=== PATIENT | male | born 1950 | race Caucasian/White ===

== ENCOUNTER 2020-02-25 05:33 | Outpatient (RCR) | payer BC ==
[~2020-02-25] VITALS: Ht 180 cm; Wt 83.0 kg
[~2020-02-25 05:33] MED LIST: ASCO500C17 PO; CHOL2000 PO; MAGN250T13 PO; OMEP20TA7 PO; VITA15LO2 PO; ZOLP6.252 PO
[2020-02-27] MEDS ORDERED: TRM50T PO (12:14)
[2020-02-27] MEDS ORDERED: CEPH-507 PO (12:15)
== END 2020-02-25 10:14 | disposition home or self-care (01) ==
LOC: PREOP 05:33
PROVIDERS: ATTEND Radiology Radiation Oncology
DX: Z01.812 Encounter for preprocedural laboratory examination (principal); Z20.828 Contact with and (suspected) exposure to other viral communicable diseases; C61 Malignant neoplasm of prostate
CPT/HCPCS: 87635

== ENCOUNTER 2020-02-27 11:27 | Day surgery (SDC) | payer BC ==
[2020-02-27] VITALS (10 sets, daily range): BP systolic 110–138; BP diastolic 71–95
[~2020-02-27] VITALS: Ht 180 cm; Wt 83.0 kg
[2020-02-27] MEDS ORDERED: ceFAZolin INJECTION 1,000 MG in WATER (STERILE) FOR INJECTION 10 ML IV ONE (11:45)
--- NOTE | 2020-02-27 12:10 | Progress Note-Pre Operative ---
Pre-Operative Progress Note H&P Reviewed The H&P was reviewed, patient examined and no changes noted. Date Seen by Provider: Feb 27, 2020 Time Seen by Provider: 12:09 Date H&P Reviewed: Feb 27, 2020 Time H&P Reviewed: 12:09 Pre-Operative Diagnosis: Prostate cancer cT1c, PSA 7.6, [place] 6 CARLOS HOPPER MD Feb 27, 2020 12:10
[2020-02-27] MEDS ORDERED: TRM50T PO (12:14)
[2020-02-27] MEDS ORDERED: CEPH-507 PO (12:15)
--- NOTE | 2020-02-27 12:19 | Discharge Inst-Simple/Standard ---
Discharge Inst-Standard Reconcile Patient Problems Problems Reviewed?: Yes Discharge Medications New, Converted or Re-Newed RX: RX Given to Pt/Family Patient Instructions/Follow Up Plan of Care/Instructions/FU: 1)post implant scan at [facility] in the cancer center 03/26/20 at 10:30 a.m. 2)follow up appointment with Dr. Monzon for 03/27/20 at 10:45 a.m. Activity as Tolerated: Yes Discharge Diet: No Restrictions Other Inst to Patient 1)Please instruct patient on jackson catheter removal. To be done Saturday 03/03 morning. If he does not feel comfortable removing catheter by self an appt has been made at Dr. Le's office in [place] for Saturday 03/03 at 8:30 a.m. If he is going to take catheter out himself please call their office and cancel [phone]. CARLOS HOPPER MD Feb 27, 2020 12:19
[2020-02-27] MEDS: LACTATED RINGERS 1,000 ML IV PRN ×2 (12:47→15:11)
[2020-02-27] MEDS ORDERED: fentaNYL INJECTION 100 MCG/2 ML AMP ONE (13:52)
[2020-02-27] MEDS ORDERED: ONDANSETRON 4 MG/2 ML (SDV) Z0FRAN ONE (13:52)
[2020-02-27] MEDS ORDERED: SEVOFLURANE (ULTANE) 15 ML INHAL SOLN ONE ×4 (13:52→15:03)
[2020-02-27] MEDS ORDERED: DEXAMETHASONE 10 MG/ML (DECADRON) 1 ML VIAL ONE (13:52)
[2020-02-27] MEDS ORDERED: proPOfol 200 MG/20 ML (DIPRIVAN) VIAL IV ONE ×2 (13:52→14:22)
[2020-02-27] MEDS ORDERED: LIDOCAINE PF 2% 5 ML (XYLOCAINE) VIAL ONE (13:52)
--- OUTSIDE RECORDS SUMMARY | 2020-02-27 14:22 | XMS REPORT | Continuity of Care Document ---
Author Organization Unknown Address Unknown Phone Unavailable Allergies Active Description Code Type Severity Reaction Onset Reported/Identified Relationship to Patient Clinical Status Yes codeine [id number] Drug Allergy Mild NAUSEA 02/20/2020 Medications There is no data. Problems There is no data. Procedures There is no data. Results Test Result Range Coronavirus SARS-CoV-2 SO 2018 - 0 08:06 Coronavirus Ab [Units/volume] in Serum Negative Negative Encounters ACCT No. Visit Date/Time Discharge Status Pt. Type Provider Facility Loc./Unit Complaint [id number] 02/25/2020 05:33:00 020 10:14:00 DIS Outpatient CARLOS HOPPER MD [facility] PREOP PROSTATE CANCER [id number] 12/27/2019 11:37:00 020 11:37:00 CAN Preadmit CARLOS HOPPER MD [facility] ONC [id number] 02/27/2020 11:27:[address] Outpatient CARLOS HOPPER MD [facility] PROSTATE CANCER
[2020-02-27] MEDS ORDERED: MUPIROCIN 2% OINT 22 GM (BACTROBAN) TUBE ONE (15:13)
--- NOTE | 2020-02-27 15:32 | Anesthesia-General Post-Op ---
General Patient Condition Mental Status/LOC: Same as Preop Cardiovascular: Satisfactory Nausea/Vomiting: Absent Respiratory: Satisfactory Pain: Controlled Complications: Absent Post Op Complications Complications None Follow Up Care/Instructions Patient Instructions None needed. Anesthesia/Patient Condition Patient Condition Patient is doing well, no complaints, stable vital signs, no apparent adverse anesthesia problems. No complications reported per nursing. BAM KRISHNAN CRNA Feb 27, 2020 15:32
[2020-02-27] MEDS ORDERED: morphine INJ 10 MG/ML 1ML (SYR OR VIAL) ONE (15:38)
[2020-02-27] MEDS ORDERED: ONDANSETRON 4 MG/2 ML (SDV) Z0FRAN IVP PRN (15:45)
[2020-02-27] MEDS ORDERED: morphine INJ 10 MG/ML 1ML (SYR OR VIAL) IVP ONE (15:45)
[2020-02-27] MEDS ORDERED: MEPERIDINE (DEMEROL) INJ 50 MG/ML ONE (15:47)
[2020-02-27] MEDS ORDERED: MEPERIDINE (DEMEROL) INJ 50 MG/ML IVP ONE (16:00)
--- NOTE | 2020-02-27 16:03 | Diagnostic Imaging Report ---
INDICATION: Fluoroscopy for brachytherapy. Fluoroscopy was provided during prostate brachytherapy. 13 seconds of fluoroscopic time was utilized. A single image was obtained demonstrating multiple radiation seed implants overlying the prostate. IMPRESSION: Fluoroscopy for prostate brachytherapy. Dictated by: Dictated on workstation # [id number]
--- NOTE | 2020-02-27 16:15 | NUR ---
TO AMB SURG FROM PAR PER CART. RAMESH CATH BAG TO DD ON LOWER BED RAIL, SECURED TO LEFT LEG WITH STATLOCK. URINE CLEAR, LIGHT YELLOW IN TUBING AND BAG. NO BLEEDING AT MEATUS OR PERINEUM. LOOSELY TAPED ABD AT PERINEUM WITH VERY SCANT AMOUNT OF LIGHT RED BLOODY DRAINAGE. NO ACTIVE BLEEDING AT PERINEAL SURGICAL SITE. REPORTS "BURNING SENSATION" AT MEATUS, RATES 2. PO FLUIDS PROVIDED.
--- NOTE | 2020-02-27 16:16 | Progress Note-Post Operative ---
Post-Operative Progess Note Surgeon (s)/Cadd Manager (s) Surgeon CARLOS HOPPER MD Cadd Manager: Carlos FROST MD Pre-Operative Diagnosis Prostate cancer cT1c, PSA 7.6, [place] 6 Post-Operative Diagnosis Same as pre-op Procedure & Operative Findings Date of Procedure 02/27/20 Procedure Performed/Findings (1) 100% Cesium 131 permanent prostate seed implant (2) Injection of biodegradable hydrogel prostate-rectal spacer utilizing the SpaceOAR system (3) Cystogram Prostate volume 55 cc Anesthesia Type General Estimated Blood Loss Estimated blood loss (mL): Minimal Specimens/Packing Specimens Removed None Packing: None CARLOS HOPPER MD Feb 27, 2020 16:16
--- NOTE | 2020-02-27 17:04 | NUR ---
HAS BEEN RESTING QUIETLY IN BED. STATES MEATAL DISCOMFORT IS 3 ON NUMERIC SCALE. TRAMADOL 50 MG, ONE TAB, GIVEN PO PER REQUEST.
--- NOTE | 2020-02-27 18:00 | NUR ---
HAS BEEN RESTING QUIETLY IN BED. AWAKE AND ALERT NOW. STATES HE IS READY FOR DISMISSAL INSTRUCTIONS. PAIN RATED 1. NO CHANGE IN URINE OR SURGICAL SITE ASSESSMENTS. DISCHARGE INSTRUCTIONS DISCUSSED WITH AND DEMONSTRATED TO PT AND AND RAMESH CATHETER PUT TO LEG BAG FOR DISMISSAL. SUPPLIES FOR CATHETER CARE PROVIDED TO PT.
== END 2020-02-27 18:40 | disposition home or self-care (01) ==
LOC: SDC 11:27
PROVIDERS: ATTEND Radiology Radiation Oncology
DX: C61 Malignant neoplasm of prostate (principal); M54.9 Dorsalgia, unspecified; K21.9 Gastro-esophageal reflux disease without esophagitis; Z11.2 Encounter for screening for other bacterial diseases; Z88.5 Allergy status to narcotic agent; Z79.899 Other long term (current) drug therapy
CPT/HCPCS: 55874; 55875; 76000; 76965; 77290; 77318; 77332; 77370; 77470; 77778; 87081; C1715 ×2; C2643

== ENCOUNTER 2020-03-26 10:29 | Outpatient (RCR) | payer BC, OTHER ==
[~2020-03-26 10:29] MED LIST changes: +CEPH-507 PO; -CHOL2000 PO; +CHOL200074 PO; +TRM50T PO
== END 2020-06-24 | disposition home or self-care (01) ==
LOC: ONC 10:29
PROVIDERS: ATTEND Radiology Radiation Oncology
DX: Z51.0 Encounter for antineoplastic radiation therapy (principal); C61 Malignant neoplasm of prostate
CPT/HCPCS: 77290; 77295

== ENCOUNTER 2020-08-28 13:56 | Outpatient (RCR) | payer BC | END 2020-11-26 | disposition home or self-care (01) | LOC: ONC 13:56 | PROVIDERS: ATTEND Radiology Radiation Oncology | DX: C61 Malignant neoplasm of prostate (principal) | CPT/HCPCS: 99213 ==